=== PATIENT | female | born 1940 | race Two or more races ===

== ENCOUNTER 2024-06-29 18:10 | Inpatient (IN) | payer OTHER ==
[~2024-06-29] VITALS: Ht 162.6 cm; Wt 74.8 kg
[2024-06-29] MEDS ORDERED: GUAIFENESIN/DEXTROMETHORPHAN 10ML BLIST.PACK PO ONE (18:30)
[2024-06-29] MEDS ORDERED: METHYLPREDNISOLONE SOD SUCC 125 MG VIAL IV ONE (18:30)
[2024-06-29] MEDS ORDERED: KETOROLAC TROMETHAMINE 30 MG VIAL IV ONE (18:30)
[2024-06-29] MEDS ORDERED: KETOROLAC TROMETHAMINE 30 MG VIAL ONE (18:34)
[2024-06-29] MEDS ORDERED: METHYLPREDNISOLONE SOD SUCC 125 MG VIAL ONE (18:34)
[2024-06-29] MEDS ORDERED: GUAIFENESIN/DEXTROMETHORPHAN 5ML BLIST.PACK PO ONE (18:34)
[2024-06-29 18:54] LABS: ABG PH 7.477 (7.35-7.45); ABG PO2 70.2 mmHg (80-100); ABG pCO2 32.2 mmHg (35-45); BASE EXCESS 0.6 mmol/l; BICARBONATE 23.3 mmol/l (23-25); SaO2 95.1 %; Tco2 24.3 mmol/l
[2024-06-29 19:11] LABS: HEMOGLOBIN 12.2 g/dL (12.0-15.00); MEAN CELL VOLUME 84.5 fL (80.00-100.00); MEAN CORPUSCULAR HEMOGLOBIN 29.5 pg (27.00-32.0); MEAN CORPUSCULAR HGB CONC 34.9 g/dl (32.0-36.0); PLATELET COUNT 178 K/uL (150-450); RED BLOOD COUNT 4.15 M/uL (4.00-6.00); RED CELL DISTRIBUTION WIDTH 13.9 % (11.5-14.5)
[2024-06-29 19:40] LABS: ALBUMIN 3.1 gm/dL (3.4-5.0); BILIRUBIN TOTAL 0.47 mg/dL (0.3-1.2); CALCIUM 8.8 mg/dL (8.5-10.1); CREATININE SERUM 0.54 mg/dL (0.55-1.02); GFR 107.82; POTASSIUM 3.71 mEq/L (3.5-5.1); TOTAL PROTEIN 7.1 gm/dL (6.4-8.2)
[2024-06-29 20:26] LABS: allen test SATISFACTORY; o2 21 %; puncture site RADIAL LEFT
[2024-06-29] MEDS ORDERED: CEFTRIAXONE SODIUM 2,000 MG in 0.9 % SODIUM CHLORIDE 100 ML IV SCH (22:24)
[2024-06-29] MEDS ORDERED: AZITHROMYCIN 500 MG in DEXTROSE 5 % IN WATER 250 ML IV SCH (22:24)
[2024-06-29] MEDS ORDERED: 0.9 % SODIUM CHLORIDE 1,000 ML IV SCH (22:30)
[2024-06-29] MEDS ORDERED: ACETAMINOPHEN 500 MG GEL..CAP PO PRN (22:30)
[2024-06-30] MEDS ORDERED: IPRATROPIUM BROMIDE 0.5 MG/2.5 ML AMPUL.NEB IH SCH (01:00)
[2024-06-30 01:12] LABS: PARTIAL THROMBOPLASTIN TIME 31.5 SECONDS (22.0-34.0)
[2024-06-30 01:13] LABS: D DIMER < 0.19 MG/L
[2024-06-30 01:17] LABS: PROTHROMBIN TIME 10.9 SECONDS (9.0-11.5)
[2024-06-30] MEDS ORDERED: GUAIFEN/DEXTROMETHORPHAN/PE 10 ML BLIST.PACK PO SCH (02:00)
[2024-06-30 02:07] LABS: FERRITIN 209.3 NG/ML (8-252)
[2024-06-30 02:20] LABS: C-REACTIVE PROTEIN 11.7 MG/DL (0.00-0.29)
[2024-06-30 03:40] VITALS: BP 119/55
[2024-06-30] MEDS ORDERED: ENOXAPARIN SODIUM 40 MG/0.4 ML SYRINGE SUBCUTANEO SCH (09:00)
[2024-06-30] MEDS ORDERED: FAMOTIDINE/PF 20 MG in 0.9 % SODIUM CHLORIDE 8 ML IV PUSH SCH (09:00)
[2024-06-30] MEDS ORDERED: FAMOTIDINE/PF 20 MG/2 ML VIAL ONE (09:12)
[2024-06-30 10:24] VITALS: BP 116/59
[2024-06-30] MEDS ORDERED: DEXAMETHASONE SODIUM PHOSPHATE 4 MG/ML VIAL IV SCH (11:22)
[2024-06-30] MEDS ORDERED: REMDESIVIR 100 MG VIAL IV ONE (11:30)
[2024-06-30] MEDS ORDERED: levoFLOXacin IN DEXTROSE 5 % 150 ML IV SCH (11:34)
[2024-06-30 12:17] LABS: PH,URINE 5.5 (5.0-8.0); URINE APPEARANCE Cloudy; URINE BILIRRUBIN Small (NEGATIVE); URINE BLOOD Trace; URINE COLOR Dark Yellow; URINE KETONE Negative (NEGATIVE); URINE LEUKOCYTE Small; URINE NITRATE Negative
[2024-06-30 12:18] LABS: URINE BACTERIA 336.3 uL (0.0-1933); URINE EPITHELIAL CELLS 8.8 uL (0.0-38.8); URINE RBC 9.3 uL (0.0-20.8)
[2024-06-30 12:25] LABS: URINE CAST 0.91 uL (0.0-1.40); URINE GLUCOSE 100 MG/DL (NEGATIVE); URINE PROTEIN 100 (NEGATIVE)
[2024-06-30] MEDS ORDERED: ALBUTEROL SULFATE 8.5 GM HFA.AER.AD IH SCH (13:00)
[2024-06-30 15:11] LABS: C-REACTIVE PROTEIN 11.6 MG/DL (0.00-0.29)
[2024-06-30 15:26] LABS: FERRITIN 237.8 NG/ML (8-252)
[2024-06-30 18:30] VITALS: BP 137/78
[2024-06-30] MEDS ORDERED: CEFTRIAXONE SODIUM 2,000 MG in 0.9 % SODIUM CHLORIDE 100 ML IV SCH (21:00)
[2024-06-30] MEDS ORDERED: AZITHROMYCIN 500 MG in DEXTROSE 5 % IN WATER 250 ML IV SCH (21:00)
[2024-07-01 02:10] VITALS: BP 113/61
[2024-07-01] MEDS ORDERED: FAMOTIDINE/PF 20 MG/2 ML VIAL ONE (08:19)
[2024-07-01 09:32] VITALS: BP 150/73; O2SAT 98
[2024-07-01] MEDS ORDERED: REMDESIVIR 100 MG VIAL IV SCH (14:00)
[2024-07-01] MEDS ORDERED: IPRATROPIUM BROMIDE 0.5 MG/2.5 ML AMPUL.NEB IH SCH (17:00)
[2024-07-01 17:33] VITALS: BP 137/84; O2SAT 95
[2024-07-02 02:30] VITALS: BP 129/79; O2SAT 95
[2024-07-02] MEDS ORDERED: DEXAMETHASONE SODIUM PHOSPHATE 4 MG/ML VIAL IV SCH (09:00)
[2024-07-02 09:41] VITALS: BP 136/63
[2024-07-02 09:45] LABS: HEMATOCRIT 38.6 % (36.0-45.00); HEMOGLOBIN 13.1 g/dL (12.0-15.00); MEAN CELL VOLUME 84.9 fL (80.00-100.00); MEAN CORPUSCULAR HEMOGLOBIN 28.8 pg (27.00-32.0); PLATELET COUNT 242 K/uL (150-450); RED BLOOD COUNT 4.55 M/uL (4.00-6.00); RED CELL DISTRIBUTION WIDTH 13.6 % (11.5-14.5)
[2024-07-02 10:22] LABS: CALCIUM 8.5 mg/dL (8.5-10.1); CREATININE SERUM 0.52 mg/dL (0.55-1.02); GFR 112.62; POTASSIUM 3.75 mEq/L (3.5-5.1)
[2024-07-02 17:18] VITALS: BP 165/88
[2024-07-03 03:09] VITALS: BP 149/67; O2SAT 93
[2024-07-03 09:57] VITALS: BP 135/62
[2024-07-03 19:02] VITALS: BP 161/79; O2SAT 96
[2024-07-04 02:20] VITALS: BP 134/68; O2SAT 94
[2024-07-04 09:00] VITALS: BP 142/71
[2024-07-04 10:12] LABS: ABG PH 7.501 (7.35-7.45); ABG PO2 54.5 mmHg (80-100); ABG pCO2 34.9 mmHg (35-45); BASE EXCESS 3.8 mmol/l; BICARBONATE 26.7 mmol/l (23-25); SaO2 91.2 %; Tco2 27.7 mmol/l; o2 21 %
[2024-07-04 10:13] LABS: allen test SATISFACTORY; puncture site RADIAL LEFT
== END 2024-07-04 16:36 | disposition home or self-care (01) | DRG 177 ==
LOC: ER 18:10 → MEDJ 22:27
PROVIDERS: General Practice; Internal Medicine; ADMIT Internal Medicine; ATTEND Internal Medicine
PROC: BW24ZZZ Computerized Tomography (CT Scan) of Chest and Abdomen (ICD-10-PCS; principal; 2024-06-29)
PROC: XW033E5 Introduction of Remdesivir Anti-infective into Peripheral Vein, Percutaneous Approach, New Technology Group 5 (ICD-10-PCS; 2024-07-01)
DX: U07.1 COVID-19 (principal); J12.82 Pneumonia due to coronavirus disease 2019; I73.9 Peripheral vascular disease, unspecified

== ENCOUNTER 2025-05-01 19:41 | Inpatient (IN) | payer OTHER ==
[~2025-05-01] VITALS: Ht 152.4 cm; Wt 45.4 kg
--- NOTE | 2025-05-01 20:34 | NUR ---
PTE ALERTA Y ORIENTADO X3 EN [facility] REFIERE VENIR POR REFERIDO DE [place] POR DOLOR ABDOMINAL Y PERFORACION DE DIVERTICULO EN YEYUNO. SE MIDEN S/V Y SE UBICA.
[2025-05-01] MEDS ORDERED: CIPROFLOXACIN IN 5 % DEXTROSE 400 MG/200 ML PIGGYBAG IV ONE (21:00)
[2025-05-01] MEDS ORDERED: FAMOtidine 10 MG/ML (4ML VIAL) IV ONE (21:00)
[2025-05-01] MEDS ORDERED: 0.9 % SODIUM CHLORIDE 1,000 ML IV ONE (21:45)
[2025-05-01 21:58] LABS: BASO % 0.3 % (0.1-1.2); EOS # 0.12 (0.04-0.54); EOS % 1.1 % (0.7-7.0); LYMPH # 0.75 (1.18-3.74); LYMPH % 7.2 % (19.3-53.1); MEAN PLATELET VOLUME 13.00 fl (9.4-12.4); MONO # 0.59 (0.24-0.82); MONO % 5.6 % (4.7-12.5); NEUT # 8.90 (1.56-6.13); NEUT % 85.2 % (34.0-71.1); RED CELL DISTRIBUTION WIDTH 14.4 % (11.6-14.4)
[2025-05-01 22:17] LABS: INR 0.94
[2025-05-01 22:23] LABS: ALT/SGPT 15.0 U/L (12-78); AST/SGOT 9.0 U/L (15-37); BILIRUBIN TOTAL 0.72 mg/dL (0.3-1.2); BUN CREA RATIO 45.0 (7.0-25.0); CREATININE SERUM 0.51 mg/dL (0.55-1.02); GFR 114.89; GLOBULINA 4.0 G/DL (2.4-3.5); GLUCOSE FASTING 82.0 mg/dL (65-100); OSMOLALITY SERUM 280.0 MOSM/KG (275-295)
--- NOTE | 2025-05-01 22:37 | NUR ---
SE ORIENTA PTE SOBRE TX MEDICO Y LA MISMA REFIERE ENTENDER Y ACEPTAR. SE CANALIZA Y SE COLECTAN MUESTRAS DE LAB. SE ADMINSTRA MED [place] ORDEN MEDICA. SE HACE ENTREGA DE CONTRASTES PARA CT PO
[2025-05-01 23:18] LABS: URINE APPEARANCE Clear; URINE BILIRRUBIN Negative (NEGATIVE); URINE BLOOD Trace; URINE COLOR Yellow; URINE GLUCOSE Negative (NEGATIVE); URINE KETONE 15 (NEGATIVE); URINE LEUKOCYTE Negative; URINE NITRATE Negative; URINE PROTEIN Negative (NEGATIVE); URINE UROBILINOGEN 0.2 E.U./dl
[2025-05-01 23:22] LABS: URINE BACTERIA 15.5 uL (0.0-1933); URINE EPITHELIAL CELLS 1.8 uL (0.0-38.8); URINE RBC 2.3 uL (0.0-20.8); URINE WBC 3.9 uL (0.0-23.2)
[2025-05-01 23:28] LABS: URINE CAST 0.14 uL (0.0-1.40)
[2025-05-01] MEDS ORDERED: ONDANSETRON HCL 2 MG/ML VIAL IV ONE (23:45)
[2025-05-02] MEDS ORDERED: METRONIDAZOLE/SODIUM CHLORIDE 500 MG/100 ML PIGGYBACK IV STA (00:43)
[2025-05-02] MEDS ORDERED: LOSARTAN POTASSIUM 25 MG TABLET PO STA (07:55)
[2025-05-02] MEDS ORDERED: LOSARTAN POTASSIUM 50 MG,LOSARTAN POTASSIUM 25 MG PO STA (08:18)
--- NOTE | 2025-05-02 16:21 | NUR ---
PTE ALERTA Y ORIENTADA X 3 ESFERAS EN COMPANIA DE FAMILIARES EN CAMA CON BARANDAS ELEVADAS,AREA DE VENOPUNCION PATENTE Y BETHANY DE EDEMA CON FLUIDOS DE MANTENIMIENTO.PTE EVALUADA POR DR ELYSIA JORDAN EN TURNO ANTERIOR.PENDIENTE A EVALUACION DE DR FINK.NO PRESENTA DIFICULTAD RESP NI REFIERE DOLOR.
[2025-05-02] MEDS ORDERED: FAMOTIDINE/PF 20 MG in 0.9 % SODIUM CHLORIDE 8 ML IV PUSH SCH (17:03)
[2025-05-02] MEDS ORDERED: CIPROFLOXACIN IN 5 % DEXTROSE 200 ML IV SCH (17:04)
[2025-05-02] MEDS ORDERED: ONDANSETRON HCL 4 MG in 0.9 % SODIUM CHLORIDE 50 ML IV PRN (17:15)
[2025-05-02] MEDS ORDERED: MORPHINE SULFATE 2 MG/ML SYRINGE IV PRN (17:15)
[2025-05-02] MEDS ORDERED: 0.9 % SODIUM CHLORIDE 1,000 ML IV SCH (17:15)
[2025-05-02] MEDS ORDERED: ACETAMINOPHEN 500 MG GEL..CAP PO PRN (17:15)
[2025-05-02 19:12] VITALS: BP 126/68; O2SAT 100
[2025-05-03 08:00] VITALS: BP 132/68; O2SAT 97
[2025-05-03] MEDS ORDERED: LOSARTAN POTASSIUM 50 MG TABLET PO SCH (09:00)
[2025-05-03] MEDS ORDERED: ENOXAPARIN SODIUM 40 MG/0.4 ML SYRINGE SUBCUTANEO SCH (09:00)
[2025-05-03 16:00] VITALS: BP 134/72; O2SAT 97
[2025-05-03] MEDS ORDERED: AA 2.36%/D6.8W/FAT/E-LYTES NO9 1,440 ML IV SCH ×2 (17:00)
[2025-05-03 17:19] LABS: BUN CREA RATIO 37.0 (7.0-25.0); CHOL HDL RATIO 4.0 (0-5.0); CREATININE SERUM 0.41 mg/dL (0.55-1.02); GFR 147.79; GLUCOSE FASTING 72.0 mg/dL (65-100); HDL 39.0 mg/dl (40-60); LDL 98.0 mg/dl (0-130); OSMOLALITY SERUM 290.0 MOSM/KG (275-295); VLDL 19.0 (0-39)
[2025-05-03] MEDS ORDERED: PIPERACILLIN/TAZOBACTAM SODIUM 3.375 GM VIAL IV SCH (18:00)
[2025-05-04 01:38] VITALS: BP 138/65; O2SAT 96
[2025-05-04 09:44] VITALS: BP 157/60; O2SAT 97
[2025-05-04 14:14] LABS: BASO % 0.2 % (0.1-1.2); EOS # 0.16 (0.04-0.54); EOS % 2.6 % (0.7-7.0); LYMPH # 0.76 (1.18-3.74); LYMPH % 12.3 % (19.3-53.1); MEAN PLATELET VOLUME 12.50 fl (9.4-12.4); MONO # 0.53 (0.24-0.82); MONO % 8.6 % (4.7-12.5); NEUT # 4.65 (1.56-6.13); NEUT % 75.5 % (34.0-71.1); RED CELL DISTRIBUTION WIDTH 13.5 % (11.6-14.4)
[2025-05-04 15:18] LABS: ALT/SGPT 13.0 U/L (12-78); AST/SGOT 11.0 U/L (15-37); BILIRUBIN TOTAL 0.36 mg/dL (0.3-1.2); BUN CREA RATIO 18.0 (7.0-25.0); CREATININE SERUM 0.5 mg/dL (0.55-1.02); GFR 117.54; GLOBULINA 2.5 G/DL (2.4-3.5); GLUCOSE FASTING 117.0 mg/dL (65-100); OSMOLALITY SERUM 294.0 MOSM/KG (275-295)
[2025-05-05 09:32] VITALS: BP 152/66; O2SAT 99
[2025-05-05 16:41] VITALS: BP 150/70; O2SAT 96
[2025-05-06 00:59] VITALS: BP 166/67; O2SAT 97
[2025-05-06 08:00] VITALS: BP 143/73; O2SAT 96
[2025-05-06] MEDS ORDERED: ENALAPRILAT DIHYDRATE 1.25 MG/ML VIAL IV PRN (08:15)
[2025-05-06] MEDS ORDERED: AMLODIPINE BESYLATE 5 MG TABLET PO SCH (09:00)
[2025-05-06] MEDS ORDERED: DIATRIZOATE MEGLUMINE, SODIUM 30 ML BOTTLE PO NR (13:50)
[2025-05-06 16:00] VITALS: BP 128/78; O2SAT 98
[2025-05-07 00:54] VITALS: BP 132/63; O2SAT 95
[2025-05-07 08:00] VITALS: BP 129/66; O2SAT 96
[2025-05-07] MEDS ORDERED: AMLODIPINE BESYLATE 10 MG TABLET PO SCH (09:00)
[2025-05-07] MEDS ORDERED: SODIUM CHLORIDE 0.45 % 1,000 ML IV SCH (12:15)
[2025-05-07 17:00] VITALS: BP 139/70; O2SAT 97
[2025-05-08 00:38] VITALS: BP 132/66; O2SAT 95
[2025-05-08 06:58] LABS: BASO % 0.6 % (0.1-1.2); EOS # 0.31 (0.04-0.54); EOS % 6.3 % (0.7-7.0); LYMPH # 0.85 (1.18-3.74); LYMPH % 17.3 % (19.3-53.1); MEAN PLATELET VOLUME 13.20 fl (9.4-12.4); MONO # 0.45 (0.24-0.82); MONO % 9.1 % (4.7-12.5); NEUT # 3.18 (1.56-6.13); NEUT % 64.7 % (34.0-71.1); RED CELL DISTRIBUTION WIDTH 14.0 % (11.6-14.4)
[2025-05-08 07:19] LABS: INR 0.98
[2025-05-08 07:26] LABS: ALT/SGPT 47 U/L (12-78); AST/SGOT 27 U/L (15-37); BILIRUBIN TOTAL 0.34 mg/dL (0.3-1.2); BILIRUBIN,CONJUGATED < 0.10 mg/dL (0.0-0.2); BUN CREA RATIO 15 (7.0-25.0); CREATININE SERUM 0.39 mg/dL (0.55-1.02); GFR 156.57; GLOBULINA 2.5 G/DL (2.4-3.5); GLUCOSE FASTING 101 mg/dL (65-100); OSMOLALITY SERUM 290 MOSM/KG (275-295)
[2025-05-08 08:00] VITALS: BP 133/60; O2SAT 96
[2025-05-08] MEDS ORDERED: POTASSIUM CHLORIDE 20MEQ/100ML H2O PB IV NR (10:00)
[2025-05-08 16:56] VITALS: BP 133/67; O2SAT 95
[2025-05-09 00:41] VITALS: BP 120/65; O2SAT 95
[2025-05-09 08:00] VITALS: BP 131/64; O2SAT 95
[2025-05-09 15:30] VITALS: BP 118/66; O2SAT 96
[2025-05-10 04:14] LABS: UREA CLEARANCE 16.0 ML/MIN
[2025-05-10 08:00] VITALS: BP 145/71; O2SAT 96
== END 2025-05-10 12:37 | disposition home or self-care (01) | DRG 392 ==
LOC: ER 19:41 → SURG 05-02 17:38 → MEDI 05-02 17:38 → SURG 05-02 17:43
PROVIDERS: General Practice; ADMIT Internal Medicine; ATTEND Internal Medicine
PROC: BW21YZZ Computerized Tomography (CT Scan) of Abdomen and Pelvis using Other Contrast (ICD-10-PCS; 2025-05-01)
PROC: 02HV33Z Insertion of Infusion Device into Superior Vena Cava, Percutaneous Approach (ICD-10-PCS; 2025-05-03)
PROC: B548ZZA Ultrasonography of Superior Vena Cava, Guidance (ICD-10-PCS; 2025-05-03)
PROC: BW21YZZ Computerized Tomography (CT Scan) of Abdomen and Pelvis using Other Contrast (ICD-10-PCS; principal; 2025-05-06)
DX: K57.00 Diverticulitis of small intestine with perforation and abscess without bleeding (principal); I10 Essential (primary) hypertension

== ENCOUNTER 2025-05-16 14:55 | Inpatient (IN) | payer OTHER ==
[~2025-05-16] VITALS: Ht 162.6 cm; Wt 54.4 kg
[2025-05-16] MEDS ORDERED: LOSARTAN POTASS50 MG (15:14)
--- NOTE | 2025-05-16 15:16 | NUR ---
SE RECIBE PTE ALERTA Y ORIENTADA X3. REFIERE QUE TUVO DOLOR ABDOMINAL EL SABADO PASADO Y FUE A HU MEDICO Y EL MISMO LE DIJO QUE PASARA POR ER PARA REALIZARSE CT. PTE AL MOMENTO NIEGA DOLOR. SE MIDE SV Y SE UBICA
[2025-05-16] MEDS ORDERED: FAMOTIDINE/PF 20 MG/2 ML VIAL IV ONE (17:00)
[2025-05-16] MEDS ORDERED: 0.9 % SODIUM CHLORIDE 500 ML IV ONE (17:15)
[2025-05-16] MEDS ORDERED: ONDANSETRON HCL 2 MG/ML VIAL IV ONE (17:15)
[2025-05-16 18:38] LABS: BASO % 0.7 % (0.1-1.2); EOS # 0.11 (0.04-0.54); EOS % 1.2 % (0.7-7.0); LYMPH # 1.11 (1.18-3.74); LYMPH % 12.5 % (19.3-53.1); MEAN PLATELET VOLUME 13.60 fl (9.4-12.4); MONO # 0.81 (0.24-0.82); MONO % 9.1 % (4.7-12.5); NEUT # 6.74 (1.56-6.13); NEUT % 75.7 % (34.0-71.1); RED CELL DISTRIBUTION WIDTH 14.6 % (11.6-14.4)
[2025-05-16 20:56] LABS: INR 1.03
[2025-05-16 21:15] LABS: ALT/SGPT 20.0 U/L (12-78); AST/SGOT 9.0 U/L (15-37); BILIRUBIN TOTAL 0.55 mg/dL (0.3-1.2); BUN CREA RATIO 28.0 (7.0-25.0); CREATININE SERUM 0.76 mg/dL (0.55-1.02); GFR 72.5; GLOBULINA 3.5 G/DL (2.4-3.5); GLUCOSE FASTING 89.0 mg/dL (65-100); OSMOLALITY SERUM 276.0 MOSM/KG (275-295)
[2025-05-16] MEDS ORDERED: PIPERACILLIN/TAZOBACTAM SODIUM 3.375 GM in DEXTROSE 5 % IN WATER 100 ML IV SCH (21:51)
[2025-05-16] MEDS ORDERED: FAMOTIDINE/PF 20 MG in 0.9 % SODIUM CHLORIDE 8 ML IV PUSH SCH (21:54)
[2025-05-16] MEDS ORDERED: ACETAMINOPHEN 500 MG GEL..CAP PO PRN (22:00)
[2025-05-16] MEDS ORDERED: MORPHINE SULFATE 2 MG/ML CARTRIDGE IV PRN (22:00)
[2025-05-16] MEDS ORDERED: 0.9 % SODIUM CHLORIDE 1,000 ML IV SCH (22:00)
[2025-05-16] MEDS ORDERED: ONDANSETRON HCL 4 MG in 0.9 % SODIUM CHLORIDE 50 ML IV PRN (22:00)
[2025-05-17 00:10] VITALS: BP 100/60
[2025-05-17 01:45] VITALS: BP 129/73; O2SAT 95
[2025-05-17 08:40] VITALS: BP 110/50; O2SAT 96
[2025-05-17] MEDS ORDERED: ENOXAPARIN SODIUM 40 MG/0.4 ML SYRINGE SUBCUTANEO SCH (09:00)
[2025-05-17] MEDS ORDERED: FLUCONAZOLE IN NACL,ISO-OSM 100 ML IV SCH (09:00)
[2025-05-17] MEDS ORDERED: SODIUM CHLORIDE 0.45 % 1,000 ML IV SCH (12:00)
[2025-05-17] MEDS ORDERED: ENALAPRILAT DIHYDRATE 1.25 MG/ML VIAL IV PRN (12:00)
[2025-05-17] MEDS ORDERED: MEROPENEM 500 MG/VIAL VIAL IV SCH (13:00)
[2025-05-17 16:05] LABS: BUN CREA RATIO 30.0 (7.0-25.0); CHOL HDL RATIO 5.0 (0-5.0); CREATININE SERUM 0.54 mg/dL (0.55-1.02); GFR 107.56; GLUCOSE FASTING 74.0 mg/dL (65-100); HDL 34.0 mg/dl (40-60); LDL 113.0 mg/dl (0-130); OSMOLALITY SERUM 289.0 MOSM/KG (275-295); VLDL 21.0 (0-39)
[2025-05-17 16:24] LABS: INR 1.05
[2025-05-17] MEDS ORDERED: AA 2.36%/D6.8W/FAT/E-LYTES NO9 1,440 ML IV SCH (17:00)
[2025-05-17 17:17] VITALS: BP 110/62; O2SAT 95
[2025-05-17 19:03] LABS: URINE APPEARANCE Clear; URINE BILIRRUBIN Negative (NEGATIVE); URINE BLOOD Negative; URINE COLOR Yellow; URINE GLUCOSE Negative (NEGATIVE); URINE LEUKOCYTE Negative; URINE NITRATE Negative; URINE PROTEIN Negative (NEGATIVE); URINE UROBILINOGEN 0.2 E.U./dl
[2025-05-17 19:08] LABS: URINE BACTERIA 11.9 uL (0.0-1933); URINE EPITHELIAL CELLS 9.0 uL (0.0-38.8); URINE RBC 2.1 uL (0.0-20.8); URINE WBC 17.9 uL (0.0-23.2)
[2025-05-17 19:10] LABS: URINE CAST 0.00 uL (0.0-1.40); URINE KETONE 40 (NEGATIVE)
[2025-05-18 02:31] VITALS: BP 126/68; O2SAT 96
[2025-05-18 07:58] VITALS: BP 132/59
[2025-05-18 17:23] VITALS: BP 147/66; O2SAT 96
[2025-05-19 02:10] VITALS: BP 123/70; O2SAT 96
[2025-05-19 09:14] VITALS: BP 142/67; O2SAT 98
[2025-05-19 16:30] VITALS: BP 145/72; O2SAT 95
[2025-05-20 02:15] VITALS: BP 129/63; O2SAT 94
[2025-05-20 07:30] VITALS: BP 146/72; O2SAT 95
[2025-05-20 17:19] VITALS: BP 152/72
[2025-05-20 22:16] VITALS: BP 136/67
[2025-05-21 00:22] VITALS: BP 138/74; O2SAT 94
[2025-05-21 07:30] VITALS: BP 147/66
[2025-05-21] MEDS ORDERED: LOSARTAN POTASSIUM 25 MG TABLET PO SCH (09:00)
[2025-05-21] MEDS ORDERED: LACTOBACILLUS ACIDOPHILUS 1 CAP CAP PO SCH (13:00)
[2025-05-21 17:16] VITALS: BP 160/70
[2025-05-22 01:00] VITALS: BP 134/60; O2SAT 98
[2025-05-22] MEDS ORDERED: DIATRIZOATE MEGLUMINE, SODIUM 30 ML BOTTLE PO NR (06:00)
[2025-05-22 07:25] LABS: BASO % 0.8 % (0.1-1.2); EOS # 0.32 (0.04-0.54); EOS % 6.5 % (0.7-7.0); LYMPH # 1.04 (1.18-3.74); LYMPH % 21.0 % (19.3-53.1); MEAN PLATELET VOLUME 14.60 fl (9.4-12.4); MONO # 0.43 (0.24-0.82); MONO % 8.7 % (4.7-12.5); NEUT # 3.09 (1.56-6.13); NEUT % 62.2 % (34.0-71.1); RED CELL DISTRIBUTION WIDTH 14.6 % (11.6-14.4)
[2025-05-22 07:33] LABS: INR 0.96
[2025-05-22 08:08] VITALS: BP 166/73; O2SAT 99
[2025-05-22 08:21] LABS: ALT/SGPT 21 U/L (12-78); AST/SGOT 15 U/L (15-37); BILIRUBIN TOTAL 0.30 mg/dL (0.3-1.2); BILIRUBIN,CONJUGATED < 0.10 mg/dL (0.0-0.2); BUN CREA RATIO 23 (7.0-25.0); CHOL HDL RATIO 4.4 (0-5.0); CREATININE SERUM 0.30 mg/dL (0.55-1.02); GFR 211.94; GLOBULINA 2.6 G/DL (2.4-3.5); GLUCOSE FASTING 86 mg/dL (65-100); HDL 29 mg/dl (40-60); LDL 66 mg/dl (0-130); OSMOLALITY SERUM 288 MOSM/KG (275-295); VLDL 32 (0-39)
[2025-05-22] MEDS ORDERED: LOSARTAN POTASSIUM 50 MG TABLET PO SCH (09:00)
[2025-05-22 14:28] LABS: FECAL LEUKOCYTES NEGATIVE (NEGATIVE)
[2025-05-22 16:53] VITALS: BP 150/70
[2025-05-23 00:09] VITALS: BP 138/65
[2025-05-23 08:55] VITALS: BP 132/68; O2SAT 97
[2025-05-23] MEDS ORDERED: LOSARTAN POTASSIUM 50 MG TABLET PO SCH (09:00)
[2025-05-23] MEDS ORDERED: LOSARTAN POTASSIUM 50 MG,LOSARTAN POTASSIUM 25 MG PO SCH (09:00)
[2025-05-23 16:34] VITALS: BP 160/65
[2025-05-24 01:40] VITALS: BP 108/62
[2025-05-24 09:05] VITALS: BP 150/70; O2SAT 99
[2025-05-24] MEDS ORDERED: ACETAMINOPHEN 500 MG GEL..CAP PO PRN (11:30)
[2025-05-24] MEDS ORDERED: MEROPENEM 500 MG/VIAL VIAL IV NR (14:00)
[2025-05-24 16:05] VITALS: BP 131/57
[2025-05-24] MEDS ORDERED: MEROPENEM 500 MG/VIAL VIAL IV SCH (21:00)
[2025-05-25 00:49] VITALS: BP 113/63; O2SAT 97
[2025-05-25 07:53] VITALS: BP 154/75
[2025-05-25] MEDS ORDERED: FLUCONAZOLE IN NACL,ISO-OSM 100 ML IV SCH (17:00)
== END 2025-05-25 12:44 | disposition home or self-care (01) | DRG 392 ==
LOC: ER 14:55 → MEDI 22:09 → SEC-K 22:09 → MEDI 22:44
PROVIDERS: Emergency Medicine; General Practice; Internal Medicine Infectious Disease; Preventive Medicine Public Health & General Preventive Medicine; ADMIT Internal Medicine; ATTEND Internal Medicine
PROC: 02HV33Z Insertion of Infusion Device into Superior Vena Cava, Percutaneous Approach (ICD-10-PCS; 2025-05-19)
PROC: B548ZZA Ultrasonography of Superior Vena Cava, Guidance (ICD-10-PCS; 2025-05-19)
PROC: 3E0436Z Introduction of Nutritional Substance into Central Vein, Percutaneous Approach (ICD-10-PCS; 2025-05-19)
PROC: BW21YZZ Computerized Tomography (CT Scan) of Abdomen and Pelvis using Other Contrast (ICD-10-PCS; principal; 2025-05-22)
DX: K57.00 Diverticulitis of small intestine with perforation and abscess without bleeding (principal); K52.9 Noninfective gastroenteritis and colitis, unspecified; I10 Essential (primary) hypertension

== ENCOUNTER 2025-06-07 11:34 | Emergency (ER) | payer OTHER ==
[~2025-06-07] VITALS: Ht 30.5 cm; Wt 45.4 kg
[~2025-06-07 11:34] MED LIST: LOSARTAN POTASS50 MG
[2025-06-07 11:48] VITALS: BP 114/69; O2SAT 97
== END 2025-06-07 14:10 | disposition home or self-care (01) ==
LOC: ER 11:34
DX: Z45.2 Encounter for adjustment and management of vascular access device (principal); Z95.828 Presence of other vascular implants and grafts; I10 Essential (primary) hypertension

== ENCOUNTER 2025-09-12 08:42 | Outpatient (CLI) | payer OTHER | END 2025-09-12 08:44 | disposition home or self-care (01) | LOC: TOM 08:42 | PROVIDERS: ATTEND Colon & Rectal Surgery | DX: K57.10 Diverticulosis of small intestine without perforation or abscess without bleeding (principal) | CPT/HCPCS: 74177; Q9965 ==